=== PATIENT | male | born 1960 | race Caucasian/White ===

== ENCOUNTER → 2018-06-24 | Day surgery (SDC) | payer OTHER ==
[~2018-06-24] MED LIST: CARV25TA PO; CETI10TA16 PO; CHLO25TA10 PO; DOCU-109 PO; HYDROmorphone 2 MG/ML VIAL IV PRN; IV RINGERS,LACTATED 1000ML 1,000 ML IV SCH; LEVO200T5 PO; LIDOCAINE 1% PF 2 ML VIAL. ID PRN; LIDOCAINE 1% PF 2 ML VIAL. ONE; LOSA100T2 PO; MORPHINE SULFATE 4 MG/ML VIAL. IV PRN; ONDANSETRON PF 4 MG/2 ML VIAL. IV PRN; PANT20TA2 PO; PROCHLORPERAZINE 10 MG/2 ML VIAL. IV PRN; PROPOFOL 40 ML IV ONE; SIMV10TA3 PO; fentaNYL PF VIAL 100 MCG/2 ML VIAL IV PRN
[2018-06-24 08:08] VITALS: BP 163/90
--- NOTE | 2018-06-24 09:38 | CONS ---
DATE OF CONSULTATION: 06/24/2018 REFERRING: ____ REASON FOR CONSULTATION: Hep C, variceal screening. HISTORY OF PRESENT ILLNESS: A 57-year-old male with past medical history is significant for tonsillectomy and hernia repair. The patient has a history of hypertension, hypothyroidism, hyperlipidemia and GERD, is seen for upper endoscopy, has been recently found to have positive hepatitis C antibody. Risk factors are scanned in history, but negative for blood transfusions or intravenous drug use. There is no family history of liver disease. Denies any bleeding, denies any abdominal pain or additional constitutional complaints. PAST MEDICAL HISTORY: Hypothyroidism, hyperlipidemia, hypertension. PAST SURGICAL HISTORY: Status post tonsillectomy and hernia repair. ALLERGIES: None. MEDICATIONS: Include Coreg, cetirizine, chlorthalidone, levothyroxine, losartan, pantoprazole, and simvastatin. SOCIAL HISTORY: Nondrinker, nonsmoker at this time. FAMILY HISTORY: Noncontributory. REVIEW OF SYSTEMS: Per records. PHYSICAL EXAMINATION: GENERAL: Reveals a well-nourished, well-developed male who is alert, cooperative, in no acute distress. VITAL SIGNS: Temperature 98, pulse 60, respirations 18. HEENT: Reveals normocephalic and atraumatic head. Pupils and extraocular muscles are not tested. Sclerae anicteric. NECK: Supple. LUNGS: Clear. CARDIAC: S1, S2 without S3, S4 or appreciable murmur. ABDOMEN: Reveals soft abdomen, normoactive bowel sounds without appreciable hepatosplenomegaly. EXTREMITIES: Reveal no cyanosis, clubbing or edema. IMPRESSION AND PLAN: Hepatitis C. Upper endoscopy with variceal screening is recommended. Risks and benefits of the procedure including risk of hemorrhage and perforation have been discussed with the patient who is willing to proceed at this time. TONY SIMMS MD DR: MAURIZIO/rick JOB#: [id number] / [id number] [facility]
--- NOTE | 2018-06-24 10:51 | CONS ---
DATE OF CONSULTATION: 06/24/2018 GASTROENTEROLOGY CONSULTATION REFERRING PHYSICIAN: Russ . REASON FOR CONSULTATION: Hepatitis C and variceal screening. HISTORY OF PRESENT ILLNESS: A 57-year-old male whose past medical history is significant for hepatitis C, hypertension and hypothyroidism is seen for the variceal screening. He has completed his hep C treatments. Denies any weight loss or pruritus family history. Risk factors for the viral hepatitis are positive for skin artistry, but negative for blood transfusions or intravenous drug use. He is otherwise without additional constitutional complaints today and is here for surveillance cystoscopy. ALLERGIES: PENICILLIN, SULFA AND TRIMETHOPRIM. MEDICATIONS: Include Tylenol, Norvasc, carvedilol, furosemide, levothyroxine, lactulose, pantoprazole and prazosin. FAMILY AND SOCIAL HISTORY: He does not drink or smoke. His family history is noncontributory. PAST SURGICAL HISTORY: Noncontributory. REVIEW OF SYSTEMS: As per records. PHYSICAL EXAMINATION: GENERAL: Reveals well-nourished, well-developed male. VITAL SIGNS: Temperature is 97.8, pulse 81 and respiratory rate is 20. HEENT EXAMINATION: Reveals normocephalic and atraumatic head. Pupils and extraocular muscles are not tested. Sclerae anicteric. NECK: Supple. LUNGS: Clear. CARDIOVASCULAR EXAMINATION: Reveals an S1, S2, without S3, S4 or appreciable murmur. ABDOMEN: Examination reveals soft abdomen. Normoactive bowel sounds, without appreciable hepatosplenomegaly, with multiple tattoos. EXTREMITIES: Examination reveals no cyanosis, clubbing or edema. IMPRESSION: Hepatitis C, variceal screening and upper endoscopy are recommended. Risks and benefits of the procedure including risk of hemorrhage and perforation requiring operation have been discussed with the patient, who is willing to proceed at this time. TONY SIMMS MD DR: MAURIZIO/rick JOB#: [id number] / [id number] [facility] [place]
--- NOTE | 2018-06-27 17:09 | PATHOLOGY ---
[facility] Accession Number: [id number] . 01 Material submitted: . GASTRIC POLYP . 01 Clinical history: . Hep C . 02 Diagnosis: Gastric biopsies, gastric polyp: - Consistent with reactive gastropathy/hyperplastic polyp. (JPM:kelvin; 06/27/2018) QMS/06/27/2018 . 02 Comment: Sections of the gastric biopsy reveal segments of gastric antral mucosa showing congestion, foveolar hyperplasia, and mild acute and chronic inflammation. An immunoperoxidase stain for Helicobacter pylori is negative for Helicobacter organisms. The findings are consistent with a reactive gastropathy/hyperplastic polyp. There are no adenomatous changes or evidence of malignancy. (JPM:kelvin; 06/27/2018) . 02 Electronically signed: . Kaleb Michael MD, Pathologist NPI- [id number] . 01 Gross description: . Received in formalin labeled "Lucio, Ori, gastric polyp," are 2 segments of morin soft tissue measuring 0.8 x 0.2 x 0.1 cm in aggregate dimensions and ranging from 0.3 to 0.5 cm in maximum dimension. The specimen is entirely submitted in cassette A1. (TSD; 06/24/2018) TOB/TOB . 02 Pathologist provided ICD-10: K31.9, K31.7 . 02 CPT . 185913, B91100 Specimen Comment: A courtesy copy of this report has been sent to Specimen Comment: [phone]. Specimen Comment: Report sent to Performed at: 01 [facility] [address], [place], [place] [id number] MD Oni Brock MD Phone: [phone] Performed at: 02 [facility] [address] [place], [place] [id number] MD Kaleb Michael MD Phone: [phone]
== END | disposition home or self-care (01) ==
LOC: EDBD 06:35 → ENDOS 06:35 → EEVIPCON 07:30
PROVIDERS: ATTEND Internal Medicine Gastroenterology
DX: I85.00 Esophageal varices without bleeding (principal); K31.7 Polyp of stomach and duodenum; K76.6 Portal hypertension; K31.89 Other diseases of stomach and duodenum; I10 Essential (primary) hypertension; E03.9 Hypothyroidism, unspecified; Z88.0 Allergy status to penicillin; Z88.2 Allergy status to sulfonamides; Z88.1 Allergy status to other antibiotic agents; Z79.899 Other long term (current) drug therapy
CPT/HCPCS: 43239; J2704; 88305; 88342